=== PATIENT | female | born 1985 | race Asian ===

== ENCOUNTER → 2016-08-21 | Outpatient (CLI) | payer OTHER ==
[~2016-08-21] MED LIST: APRI 0.15 MG-0.1 TAB PO; ATIVAN 1MG T1 MG/TAB PO; LAMICTAL 25MG T25 MG PO; LAMICTAL XR100 MG PO; PROZAC 10MG10 MG PO; ZYRTEC 10MG10 MG PO
== END ==
LOC: BHSO 14:19
DX: F41.1 Generalized anxiety disorder (principal)

== ENCOUNTER → 2017-02-16 | Outpatient (CLI) | payer OTHER | LOC: BHSO 12:44 | DX: F33.1 Major depressive disorder, recurrent, moderate (principal) ==

== ENCOUNTER → 2017-06-13 | Outpatient (CLI) | payer OTHER ==
[~2017-06-13] VITALS: Ht 158.8 cm; Wt 68.9 kg
[~2017-06-13] MED LIST changes: +CYMBALTA 30MG30 MG PO; +FERROUS SU220 MG/5 M PO; +ZITHROMAX 250M250 MG PO
[2017-06-13 09:02] VITALS: BP 114/96; PULSE 96
== END ==
LOC: LIGHT 08:38
DX: F32.89 Other specified depressive episodes (principal); E66.3 Overweight; Z68.27 Body mass index [BMI] 27.0-27.9, adult; Z71.3 Dietary counseling and surveillance; R73.01 Impaired fasting glucose; F50.81 Binge eating disorder
CPT/HCPCS: G0463

== ENCOUNTER → 2017-07-02 | Outpatient (CLI) | payer OTHER ==
[~2017-07-02] MED LIST changes: +PHENTERMINE15 MG PO
== END ==
LOC: LIGHT 14:21
DX: Z01.89 Encounter for other specified special examinations (principal)

== ENCOUNTER → 2017-07-03 | Outpatient (CLI) | payer OTHER | LOC: BHSO 09:17 | DX: F33.42 Major depressive disorder, recurrent, in full remission (principal) | CPT/HCPCS: G0463 ==

== ENCOUNTER → 2017-07-05 | Outpatient (CLI) | payer OTHER ==
[~2017-07-05] VITALS: Ht 158.8 cm; Wt 70.5 kg
[2017-07-05 10:40] VITALS: BP 110/70; PULSE 88
== END ==
LOC: LIGHT 09:01
DX: F32.89 Other specified depressive episodes (principal); E66.3 Overweight; Z68.28 Body mass index [BMI] 28.0-28.9, adult; Z71.3 Dietary counseling and surveillance; R73.01 Impaired fasting glucose; F50.81 Binge eating disorder
CPT/HCPCS: G0463

== ENCOUNTER → 2017-07-11 | Outpatient (CLI) | payer OTHER | LOC: LIGHT 16:02 | DX: Z01.818 Encounter for other preprocedural examination (principal) ==

== ENCOUNTER → 2017-08-02 | Outpatient (CLI) | payer OTHER ==
[~2017-08-02] VITALS: Ht 158.8 cm; Wt 68.7 kg
[~2017-08-02] MED LIST changes: +FASTIN30 MG PO; -PHENTERMINE15 MG PO
[2017-08-02 10:51] VITALS: BP 116/70; PULSE 92
== END ==
LOC: LIGHT 09:44
DX: F32.89 Other specified depressive episodes (principal); E66.3 Overweight; Z68.27 Body mass index [BMI] 27.0-27.9, adult; Z71.3 Dietary counseling and surveillance; R73.01 Impaired fasting glucose; F50.81 Binge eating disorder
CPT/HCPCS: G0463

== ENCOUNTER → 2017-08-30 | Outpatient (CLI) | payer OTHER ==
[~2017-08-30] VITALS: Ht 158.8 cm; Wt 67.4 kg
[2017-08-30 16:08] VITALS: BP 128/80; PULSE 96
== END ==
LOC: LIGHT 14:47
DX: F32.89 Other specified depressive episodes (principal); E66.3 Overweight; Z68.26 Body mass index [BMI] 26.0-26.9, adult; Z71.3 Dietary counseling and surveillance; R73.01 Impaired fasting glucose; F50.81 Binge eating disorder
CPT/HCPCS: G0463

== ENCOUNTER → 2017-09-19 | Outpatient (CLI) | payer OTHER | LOC: BHSO 09:13 | DX: F33.41 Major depressive disorder, recurrent, in partial remission (principal) | CPT/HCPCS: G0463 ==

== ENCOUNTER → 2017-10-04 | Outpatient (CLI) | payer OTHER ==
[~2017-10-04] VITALS: Ht 158.8 cm; Wt 67.1 kg
[~2017-10-04] MED LIST changes: -LAMICTAL XR100 MG PO; +LAMICTAL150 MG PO
[2017-10-04 08:51] VITALS: BP 120/80; PULSE 72
== END ==
LOC: LIGHT 08:32
DX: F32.89 Other specified depressive episodes (principal); E66.3 Overweight; Z68.26 Body mass index [BMI] 26.0-26.9, adult; Z71.3 Dietary counseling and surveillance; R73.01 Impaired fasting glucose; F50.81 Binge eating disorder
CPT/HCPCS: G0463

== ENCOUNTER → 2018-01-23 | Outpatient (CLI) | payer BC | LOC: BHSO 14:23 | DX: F33.0 Major depressive disorder, recurrent, mild (principal) | CPT/HCPCS: G0463 ==

== ENCOUNTER → 2018-01-31 | Outpatient (CLI) | payer BC ==
[~2018-01-31] VITALS: Ht 158.8 cm; Wt 67.4 kg
[~2018-01-31] MED LIST changes: +SAVELLA25 MG PO
[2018-01-31 09:42] VITALS: BP 126/72; PULSE 72
== END ==
LOC: LIGHT 08:43
DX: F32.9 Major depressive disorder, single episode, unspecified (principal); R73.01 Impaired fasting glucose; E66.9 Obesity, unspecified; Z68.26 Body mass index [BMI] 26.0-26.9, adult; Z71.3 Dietary counseling and surveillance
CPT/HCPCS: G0463

== ENCOUNTER → 2018-02-22 | Outpatient (CLI) | payer BC | LOC: COL.RAD 08:45 | DX: M85.80 Other specified disorders of bone density and structure, unspecified site (principal); M17.11 Unilateral primary osteoarthritis, right knee; D72.829 Elevated white blood cell count, unspecified | CPT/HCPCS: A9503 ==

== ENCOUNTER → 2018-03-07 | Outpatient (CLI) | payer BC ==
[~2018-03-07] VITALS: Ht 158.8 cm; Wt 66.0 kg
[~2018-03-07] MED LIST changes: -SAVELLA25 MG PO; +SAVELLA50 MG PO
[2018-03-07 11:33] VITALS: BP 132/82; PULSE 96
== END ==
LOC: LIGHT 10:47
DX: F32.9 Major depressive disorder, single episode, unspecified (principal); R73.01 Impaired fasting glucose; E66.3 Overweight; Z68.26 Body mass index [BMI] 26.0-26.9, adult; Z71.3 Dietary counseling and surveillance
CPT/HCPCS: G0463

== ENCOUNTER → 2018-03-07 | Outpatient (CLI) | payer BC | LOC: BHSO 10:17 | DX: F33.41 Major depressive disorder, recurrent, in partial remission (principal) | CPT/HCPCS: G0463 ==

== ENCOUNTER → 2018-04-11 | Outpatient (CLI) | payer BC ==
[~2018-04-11] VITALS: Ht 158.8 cm; Wt 65.3 kg
[2018-04-11 16:45] VITALS: BP 118/84; PULSE 96
== END ==
LOC: LIGHT 11:21
DX: F32.9 Major depressive disorder, single episode, unspecified (principal); R73.01 Impaired fasting glucose; E66.3 Overweight; Z68.25 Body mass index [BMI] 25.0-25.9, adult; Z71.3 Dietary counseling and surveillance
CPT/HCPCS: G0463

== ENCOUNTER → 2018-05-16 | Outpatient (CLI) | payer BC ==
[~2018-05-16] VITALS: Ht 158.8 cm; Wt 64.0 kg
[2018-05-16 13:06] VITALS: BP 116/80; PULSE 96
== END ==
LOC: LIGHT 10:28
DX: F32.9 Major depressive disorder, single episode, unspecified (principal); R73.01 Impaired fasting glucose; E66.3 Overweight; Z68.25 Body mass index [BMI] 25.0-25.9, adult; Z71.3 Dietary counseling and surveillance
CPT/HCPCS: G0463